=== PATIENT | male | born 2005 | race Caucasian/White ===

== ENCOUNTER 2024-03-21 12:00 | Emergency (ER) | payer OTHER ==
[2024-03-21 12:05] VITALS: TEMP 98.2; BMI 20.1
[2024-03-21] MEDS ORDERED: predniSONE 20 MG TABLET (UD) ONE (12:07)
[2024-03-21] MEDS ORDERED: FAMOTIDINE 20 MG TABLET ONE (12:08)
[2024-03-21] MEDS ORDERED: diphenhydrAMINE HCL 25 MG CAPSULE (FP) PO ONE (12:08)
[2024-03-21] MEDS: predniSONE 20 MG TABLET (UD) PO ONE (12:10)
[2024-03-21] MEDS: diphenhydrAMINE HCL 25 MG CAPSULE (FP) PO ONE (12:10)
[2024-03-21] MEDS: FAMOTIDINE 20 MG TABLET PO ONE (12:10)
[2024-03-21 14:00] VITALS: BP 116/80; PULSE 80; RESP 16
[2024-03-21 21:45] LABS: HIV INTERPRETATION NEGATIVE (NEGATIVE)
== END 2024-03-21 14:15 | disposition home or self-care (01) ==
LOC: FER 12:00
DX: T63.441A Toxic effect of venom of bees, accidental (unintentional), initial encounter (principal); L29.9 Pruritus, unspecified; R21 Rash and other nonspecific skin eruption
CPT/HCPCS: 36415; 86803; 87389; 99283-25